=== PATIENT | female | born 1985 | race African-American/Black ===

== ENCOUNTER → 2016-06-26 | Outpatient (CLI) | payer OTHER, SELFPAY ==
--- NOTE | 2016-06-27 19:19 | US ---
EXAM DATE: 06/26/16 PATIENT'S AGE: 30 Patient: MIGUEL PUENTES Facility: [place], [place] Site . Site : 1985 Study: US OB Pelvis [id number] 2:01:23 PM Ordering Physician: Jf Carcamo Final Report: INDICATION: survey. TECHNIQUE: Conventional transabdominal two-dimensional grayscale ultrasound examination. COMPARISON: 04/07/2016. FINDINGS: There is a living fetus with gestational age of 21 weeks by 1st trimester ultrasound dating and 20 weeks 4 days by today`s measurements. EDC based on 1st trimester ultrasound dating is 11/07/2016. BPD: 4.8 cm, 20 weeks 3 days Head circumference: 18.3 cm, 20 weeks 5 days Abdominal circumference: 15.6 cm, 20 weeks 6 days Femur length: 3.3 cm, 20 weeks 2 days The weight is estimated at 359 grams. The heart rate is measured at 156 beats per minute and the rhythm appears regular. The head and spine are grossly intact. No gross facial abnormality is evident. The upper lip is intact. Four cardiac chambers are demonstrated. The heart and stomach appear to be on the same side. The diaphragm is intact. Two kidneys and a bladder are demonstrated. The cord insertion is normal and 3 cord vessels are noted. Four extremities are demonstrated. The amniotic fluid volume is within normal limits with ANTHONY of 17 cm. The placenta is anterior with no evidence of previa. IMPRESSION: 1. Living fetus with gestational age of 21 weeks by 1st trimester ultrasound dating and 20 weeks 4 days by today`s measurements. EDC based on 1st trimester ultrasound dating 11/07/2016. 2. No anomaly evident. Dictated by Andrew Trujillo MD @ Jun 27 2016 4:16PM (Electronic Signature) Report Signed by Proxy and Original Signed Document filed in the Medical Record. VELASQUEZ
== END ==
LOC: MW.US 13:01
PROVIDERS: ATTEND Obstetrics & Gynecology
DX: Z36 Encounter for antenatal screening of mother (principal); Z3A.21 21 weeks gestation of pregnancy
CPT/HCPCS: 76805; 76805-26

== ENCOUNTER → 2016-07-18 | Outpatient (CLI) | payer OTHER, SELFPAY | LOC: MW.CHOBGYN 14:15 | PROVIDERS: ATTEND Obstetrics & Gynecology | DX: Z34.90 Encounter for supervision of normal pregnancy, unspecified, unspecified trimester (principal) | CPT/HCPCS: 81003 ==

== ENCOUNTER → 2016-08-15 | Outpatient (CLI) | payer OTHER, SELFPAY | LOC: MW.CHOBGYN 15:16 | PROVIDERS: ATTEND Obstetrics & Gynecology | DX: Z34.90 Encounter for supervision of normal pregnancy, unspecified, unspecified trimester (principal) | CPT/HCPCS: 36415; 81003; 82950; 85027; 86850; 86900; 86901 ==

== ENCOUNTER 2016-11-16 10:49 | Inpatient (IN) | payer MEDICAID, OTHER ==
[2016-11-16] MEDS ORDERED: Nalbuphine 10 MG/1 ML Vial IVPUSH PRN (11:37)
[2016-11-16] MEDS ORDERED: Methylergonovine 0.2 MG/1 ML Amp IM PRN (11:37)
[2016-11-16] MEDS ORDERED: Sodium Chloride 0.9% 2.5 ML Syringe FLUSH PRN (11:37)
[2016-11-16] MEDS ORDERED: Sodium Chloride 0.9% 10 ML Syringe FLUSH PRN (11:37)
[2016-11-16] MEDS ORDERED: Carboprost Tromethamine 250 MCG/1 ML Amp IM PRN (11:37)
[2016-11-16] MEDS ORDERED: Water For Irrigation,Sterile 1,000 ML Container IRR PRN (11:37)
[2016-11-16] MEDS ORDERED: Misoprostol 200 MCG Tab PO PRN (11:37)
[2016-11-16] MEDS ORDERED: Terbutaline 1 MG/ML SDV SUBCUT PRN (11:37)
[2016-11-16] MEDS ORDERED: Butorphanol 1 MG/ML SDV IVPUSH PRN (11:37)
[2016-11-16] MEDS ORDERED: Lidocaine 1% 50 ML MDV INJECT PRN (11:37)
[2016-11-16] MEDS ORDERED: Misoprostol 25 MCG (1/4 of 100 MCG) Tab PO SCH (11:45)
[2016-11-16] MEDS ORDERED: Oxytocin/Lactated Ringers 30 UNIT/500 ML BAG IV SCH ×2 (11:45)
[2016-11-16] MEDS ORDERED: Misoprostol 25 MCG (1/4 of 100 MCG) Tab VAG SCH (11:45)
[2016-11-16] MEDS ORDERED: Misoprostol 25 MCG (1/4 of 100 MCG) Tab PO ONE (12:16)
--- NOTE | 2016-11-16 14:59 | PCM.LDHP ---
L&D History of Present Illness - General Date of Service: 11/16/16 Admit Problem/Dx: Patient Status Order with Admit Dx/Problem 11/16/16 11:40 Patient Status [ADT] Routine Admission Diagnosis/Problem Admission Diagnosis/Problem 11/16/16 14:56 30 yo EDC 11/07/2016 41 2/7wks gestation, O+, RI, GBS neg. IOL for post dates Source of Information: Patient History Limitations: Reports: No Limitations - History of Present Illness Improves with: Reports: None Worsens with: Reports: None Associated Symptoms: Reports: N - Related Data Allergies/Adverse Reactions: Allergies Allergy/AdvReac Type Severity Reaction Status Date / Time No Known Allergies Allergy Verified 10/26/15 17:21 Home Medications: Home Meds Promethazine [Phenadoz] 12.5 mg RECTAL Q6H PRN 04/18/16 [History] Past Medical History - Past Health History Medical/Surgical History: Denies Medical/Surgical History Gastrointestinal History: Reports: Other (See Below) Other Gastrointestinal History: constipation last 1 month 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: , 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 (See Below) Other OB/BYN History: is 11 weeks Social & Family History - Family History Family Medical History: Noncontributory - Tobacco Use Smoking Status *Q: Never Smoker Second Hand Smoke Exposure: Yes - Caffeine Use Caffeine Use: Reports: None - Recreational Drug Use Recreational Drug Use: No H&P Review of Systems - Review of Systems: Review Of Systems: See Below General: Reports: No Symptoms HEENT: Reports: No Symptoms Pulmonary: Reports: No Symptoms Cardiovascular: Reports: No Symptoms Gastrointestinal: Reports: No Symptoms Genitourinary: Reports: No Symptoms Musculoskeletal: Reports: No Symptoms Skin: Reports: No Symptoms Psychiatric: Reports: No Symptoms Neurological: Reports: No Symptoms Hematologic/Lymphatic: Reports: No Symptoms Immunologic: Reports: No Symptoms L&D Exam - Exam Exam: See Below - Vital Signs Weight: 58.8 kg - Ortega Score Ortega Score Cervix Position: Posterior Ortega Score Consistency: Soft Ortega Score Effacement: 51-70% Ortega Score Dilation: 1-2 cm Ortega Score Infant's Station: -2 Ortega Score Total: 6 - Exam General: Alert, Oriented HEENT: Hearing Intact Lungs: Clear to Auscultation, Normal Respiratory Effort GI/Abdominal Exam: Soft (gravid), Non-Tender Rectal Exam: Deferred Genitourinary: Normal speculum exam, Cervical dilitation Back Exam: Full Range of Motion Extremities: Normal Range of Motion, Non-Tender, No Pedal Edema Skin: Warm, Dry, Intact Neurological: Cranial Nerves Intact Psychiatric: Alert, Normal Affect, Normal Mood - Patient Data Lab Results Last 24 hrs: Laboratory Results - last 24 hr 11/16/16 11/16/16 Range/Units 11:54 11:54 WBC 8.60 (4.0-11.0) K/uL RBC 3.66 L (4.30-5.90) M/uL Hgb 11.5 L (12.0-16.0) g/dL Hct 34.3 L (36.0-46.0) % MCV 93.7 (80.0-98.0) fL MCH 31.4 (27.0-32.0) pg MCHC 33.5 (31.0-37.0) g/dL RDW Std Deviation 43.2 (28.0-62.0) fl RDW Coeff of Christian 13 (11.0-15.0) % Plt Count 202 (150-400) K/uL MPV 10.20 (7.40-12.00) fL Nucleated RBC % 0.0 /100WBC Nucleated RBCs # 0 K/uL Blood Type O POSITIVE Antibody Screen NEGATIVE Result Diagrams: 11/16/16 11:54 - Problem List (1) Supervision of normal IUP (intrauterine ) in primigravida SNOMED Code(s): 10730942, 296466400, 622951616, 173657333 ICD Code: Z34.00 - ENCNTR FOR SUPRVSN OF NORMAL FIRST , UNSP TRIMESTER Status: Acute Priority: High Current Visit: Yes Qualifiers: Trimester: third trimester Qualified Code(s): Z34.03 - Encounter for supervision of normal first , third trimester (2) Post-dates SNOMED Code(s): 33624316 ICD Code: O48.0 - POST-TERM Status: Acute Priority: High Current Visit: Yes Qualifiers: Post-term type: 40-42 weeks gestation Qualified Code(s): O48.0 - Post-term Problem List Initiated/Reviewed/Updated: Yes Orders Last 24hrs: Active Orders 24 hr Category Date Time Status Patient Status [ADT] Routine ADT 11/16/16 11:40 Active Bedrest Bathroom Privileges [RC] ASDIRECTED Care 11/16/16 11:40 Active Communication Order [RC] ASDIRECTED Care 11/16/16 11:40 Active Communication Order [RC] ASDIRECTED Care 11/16/16 11:40 Hold Heart Tones [RC] CONTINUOUS Care 11/16/16 11:40 Hold Non Stress Test [RC] PER UNIT ROUTINE Care 11/16/16 11:40 Hold May Shower [RC] ASDIRECTED Care 11/16/16 11:40 Active Notify Provider [RC] PRN Care 11/16/16 11:40 Hold Notify Provider [RC] PRN Care 11/16/16 11:40 Hold Notify Provider [RC] PRN Care 11/16/16 11:40 Hold Notify Provider [RC] STAT Care 11/16/16 11:40 Active Oxygen Therapy [RC] ASDIRECTED Care 11/16/16 11:40 Active Up ad Agata [RC] ASDIRECTED Care 11/16/16 11:40 Active Vaginal Exam [RC] PRN Care 11/16/16 11:40 Hold Vaginal Exam [RC] PRN Care 11/16/16 11:40 Hold Vital Signs [RC] PER UNIT ROUTINE Care 11/16/16 11:40 Active Vital Signs [RC] PER UNIT ROUTINE Care 11/16/16 11:40 Hold Clear Liquid Diet [DIET] Diet 11/16/16 Dinner Active Butorphanol [Stadol] Med 11/16/16 11:37 Active 1 mg IVPUSH Q1H PRN Carboprost Tromethamine [Hemabate DS] Med 11/16/16 11:37 Active 250 mcg IM ASDIRECTED PRN Lactated Ringers [Ringers, Lactated] 1,000 ml Med 11/16/16 11:45 Active IV ASDIRECTED Lidocaine 1% [Xylocaine 1%] Med 11/16/16 11:37 Active 50 ml INJECT .ONCE PRN Methylergonovine [Methergine] Med 11/16/16 11:37 Active 0.2 mg IM ASDIRECTED PRN Misoprostol [Cytotec] Med 11/16/16 11:37 Active 200 mcg PO .ONCE PRN Misoprostol [Cytotec] Med 11/16/16 11:45 Active 25 mcg VAG .ONCE Misoprostol [Cytotec] Med 11/16/16 11:37 Active 25 mcg VAG Q4H PRN Oxytocin/Lactated Ringers [Pitocin in LR 30 Units/500 Med 11/16/16 11:45 Active ML] 30 unit in 500 ml IV TITRATE Sodium Chloride 0.9% [Saline Flush] Med 11/16/16 11:37 Active 10 ml FLUSH ASDIRECTED PRN Sodium Chloride 0.9% [Saline Flush] Med 11/16/16 11:37 Active 2.5 ml FLUSH ASDIRECTED PRN Terbutaline [Brethine] Med 11/16/16 11:37 Active 0.25 mg SUBCUT ASDIRECTED PRN Water For Irrigation,Sterile [Sterile Water for Med 11/16/16 11:37 Active Irrigation] 1,000 ml IRR ASDIRECTED PRN Scalp Electrode [WOMSER] Per Unit Routine Oth 11/16/16 11:40 Ordered Medication Administration Instruction [OM.PC] Q3H Oth 11/16/16 11:45 Ordered Peripheral IV Insertion Adult [OM.PC] Routine Oth 11/16/16 11:40 Ordered Resuscitation Status Routine Resus Stat 11/16/16 11:37 Ordered Medication Orders Butorphanol Tartrate (Stadol) 1 mg IVPUSH Q1H PRN PRN Reason: Pain Carboprost Tromethamine (Hemabate Ds) 250 mcg IM ASDIRECTED PRN PRN Reason: Post Hemorrhage Lactated Ringer's (Ringers, Lactated) 1,000 mls @ 150 mls/hr IV ASDIRECTED FEMI Oxytocin/Lactated Ringer's (Pitocin In Lr 30 Units/500 Ml) 30 unit in 500 mls @ 2 mls/hr IV TITRATE FEMI; 2 MUNITS/MIN PRN Reason: Protocol Lidocaine HCl (Xylocaine 1%) 50 ml INJECT .ONCE PRN PRN Reason: Laceration repair Methylergonovine Maleate (Methergine) 0.2 mg IM ASDIRECTED PRN PRN Reason: Post Hemorrhage Misoprostol (Cytotec) 200 mcg PO .ONCE PRN PRN Reason: Post Hemorrhage Misoprostol (Cytotec) 25 mcg VAG .ONCE FEMI Last Admin: 11/16/16 12:37 Dose: 25 mcg Misoprostol (Cytotec) 25 mcg VAG Q4H PRN PRN Reason: Cervical Ripening Stop: 11/17/16 15:38 Sodium Chloride (Saline Flush) 10 ml FLUSH ASDIRECTED PRN PRN Reason: Keep Vein Open Sodium Chloride (Saline Flush) 2.5 ml FLUSH ASDIRECTED PRN PRN Reason: Keep Vein Open Sterile Water (Sterile Water For Irrigation) 1,000 ml IRR ASDIRECTED PRN PRN Reason: delivery Terbutaline Sulfate (Brethine) 0.25 mg SUBCUT ASDIRECTED PRN PRN Reason: Tacysystole
[2016-11-16] MEDS: Misoprostol 25 MCG (1/4 of 100 MCG) Tab VAG PRN ×2 (16:47→23:36)
[2016-11-16] MEDS: Misoprostol 25 MCG (1/4 of 100 MCG) Tab PO PRN (23:36)
[2016-11-17] MEDS: Misoprostol 25 MCG (1/4 of 100 MCG) Tab PO PRN ×2 (03:34→07:46)
[2016-11-17] MEDS: Misoprostol 25 MCG (1/4 of 100 MCG) Tab VAG PRN ×2 (03:34→07:46)
[2016-11-17] MEDS: Lactated Ringers 1,000 ML IV SCH ×2 (13:36→13:56)
[2016-11-17] MEDS ORDERED: fentaNYL 100 MCG/2 ML SDV ONE (13:40)
[2016-11-17] MEDS ORDERED: Ropivacaine HCl/PF 100 ML ONE ×2 (13:40→20:42)
--- NOTE | 2016-11-17 14:10 | PCM.PREANE ---
Preanesthetic Assessment - Procedure Proposed Procedure: Labor Epidural - Anesthesia/Transfusion/Family Hx Anesthesia History: No Prior Anesthesia Family History of Anesthesia Reaction: No Transfusion History: No Prior Transfusion(s) Intubation History: Unknown - Review of Systems General: No Symptoms Pulmonary: No Symptoms Cardiovascular: No Symptoms Gastrointestinal: No Symptoms Neurological: No Symptoms Other: Reports: Anxiety - Physical Assessment NPO Status Date: 11/17/16 NPO Status Time: 14:06 (sips/chips) Blood Pressure: 118/70 Height: 5 ft 6 in Weight: 129 lb 10.109 oz ASA Class: 2 Mental Status: Other (Speaks some tristanian and significant other translates for her - not sure if related to stadol or pain, but seems to wait for SO to answer the questions for her) Airway Class: Mallampati = 2 Dentition: Reports: Normal Dentition ROM/Head Extension: Full Lungs: Clear to Auscultation, Normal Respiratory Effort Cardiovascular: Regular Rate, Regular Rhythm - Lab Values: Laboratory Last Values WBC 8.60 K/uL (4.0-11.0) 11/16/16 11:54 RBC 3.66 M/uL (4.30-5.90) L 11/16/16 11:54 Hgb 11.5 g/dL (12.0-16.0) L 11/16/16 11:54 Hct 34.3 % (36.0-46.0) L 11/16/16 11:54 MCV 93.7 fL (80.0-98.0) 11/16/16 11:54 MCH 31.4 pg (27.0-32.0) 11/16/16 11:54 MCHC 33.5 g/dL (31.0-37.0) 11/16/16 11:54 RDW Std Deviation 43.2 fl (28.0-62.0) 11/16/16 11:54 RDW Coeff of Christian 13 % (11.0-15.0) 11/16/16 11:54 Plt Count 202 K/uL (150-400) 11/16/16 11:54 MPV 10.20 fL (7.40-12.00) 11/16/16 11:54 Nucleated RBC % 0.0 /100WBC 11/16/16 11:54 Nucleated RBCs # 0 K/uL 11/16/16 11:54 Blood Type O POSITIVE 11/16/16 11:54 Antibody Screen NEGATIVE 11/16/16 11:54 - Allergies Allergies/Adverse Reactions: Allergies Allergy/AdvReac Type Severity Reaction Status Date / Time No Known Allergies Allergy Verified 10/26/15 17:21 - Blood Blood Available: No Product(s) Available: None - Anesthesia Plan Free Text/Narrative:: Labor Epidural - Acknowledgements Anesthesia Type Planned: Epidural Pt an Appropriate Candidate for the Planned Anesthesia: Yes Alternatives and Risks of Anesthesia Discussed w Pt/Guardian: Yes Pt/Guardian Understands and Agrees with Anesthesia Plan: Yes PreAnesthesia Questionnaire - Past Health History Medical/Surgical History: Denies Medical/Surgical History Gastrointestinal History: Reports: Other (See Below) Other Gastrointestinal History: constipation last 1 month 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 USE Smoking Status *Q: Never Smoker Tobacco Use Within Last Twelve Months: No Second Hand Smoke Exposure: No Recreational Drug Use History: No - HOME MEDS Home Medications: Home Meds Promethazine [Phenadoz] 12.5 mg RECTAL Q6H PRN 04/18/16 [History] - CURRENT (IN HOUSE) MEDS Current Meds: Current Medications Butorphanol Tartrate (Stadol) 1 mg IVPUSH Q1H PRN PRN Reason: Pain Last Admin: 11/17/16 03:34 Dose: 1 mg Carboprost Tromethamine (Hemabate Ds) 250 mcg IM ASDIRECTED PRN PRN Reason: Post Hemorrhage Lactated Ringer's (Ringers, Lactated) 1,000 mls @ 150 mls/hr IV ASDIRECTED FEMI Last Admin: 11/17/16 13:56 Dose: 150 mls/hr Oxytocin/Lactated Ringer's (Pitocin In Lr 30 Units/500 Ml) 30 unit in 500 mls @ 2 mls/hr IV TITRATE FEMI; 2 MUNITS/MIN PRN Reason: Protocol Lidocaine HCl (Xylocaine 1%) 50 ml INJECT .ONCE PRN PRN Reason: Laceration repair Methylergonovine Maleate (Methergine) 0.2 mg IM ASDIRECTED PRN PRN Reason: Post Hemorrhage Misoprostol (Cytotec) 200 mcg PO .ONCE PRN PRN Reason: Post Hemorrhage Misoprostol (Cytotec) 25 mcg VAG .ONCE FEMI Last Admin: 11/16/16 12:37 Dose: 25 mcg Misoprostol (Cytotec) 25 mcg VAG Q4H PRN PRN Reason: Cervical Ripening Stop: 11/17/16 15:38 Last Admin: 11/17/16 07:46 Dose: 25 mcg Misoprostol (Cytotec) 25 mcg PO Q4H PRN PRN Reason: Other Last Admin: 11/17/16 07:46 Dose: 25 mcg Sodium Chloride (Saline Flush) 10 ml FLUSH ASDIRECTED PRN PRN Reason: Keep Vein Open Sodium Chloride (Saline Flush) 2.5 ml FLUSH ASDIRECTED PRN PRN Reason: Keep Vein Open Sterile Water (Sterile Water For Irrigation) 1,000 ml IRR ASDIRECTED PRN PRN Reason: delivery Terbutaline Sulfate (Brethine) 0.25 mg SUBCUT ASDIRECTED PRN PRN Reason: Tacysystole Discontinued Medications Fentanyl (Sublimaze) Confirm Administered Dose 100 mcg .ROUTE .STK-MED ONE Stop: 11/17/16 13:41 Oxytocin/Lactated Ringer's (Pitocin In Lr 30 Units/500 Ml) 30 unit in 500 mls @ 500 mls/hr IV TITRATE FEMI Stop: 11/16/16 12:44 Ropivacaine (Naropin 0.2%) Confirm Administered Dose 100 mls @ as directed .ROUTE .STK-MED ONE Stop: 11/17/16 13:41 Misoprostol (Cytotec) 25 mcg PO Q4H FEMI Misoprostol (Cytotec) 25 mcg PO ONETIME ONE Stop: 11/16/16 12:17 Last Admin: 11/16/16 12:36 Dose: 25 mcg Nalbuphine HCl (Nubain) 10 mg IVPUSH Q1H PRN PRN Reason: Pain (severe 7-10) Stop: 11/16/16 13:38
[2016-11-17] MEDS ORDERED: Acetaminophen 500 MG Tab PO ONE (19:49)
[2016-11-18] MEDS ORDERED: Acetaminophen 500 MG Tab PO PRN ×2 (00:18)
[2016-11-18] MEDS ORDERED: Ibuprofen 400 MG Tab PO PRN (00:18)
[2016-11-18] MEDS ORDERED: Bisacodyl 10 MG Supp RECTAL PRN (00:18)
[2016-11-18] MEDS ORDERED: Lanolin 100% Cream 7 GM Tube TOP PRN (00:18)
[2016-11-18] MEDS ORDERED: oxyCODONE 5 MG Tab PO PRN (00:18)
[2016-11-18] MEDS ORDERED: Docusate Sodium 100 MG Cap PO PRN (00:18)
--- NOTE | 2016-11-18 01:35 | OR ---
SURGEON: Carlos Alberto Rhoades MD DATE OF PROCEDURE: DELIVERY/VACUUM EXTRACTION NOTE: Ms. Payne is 30 primigravida. She is 41+ weeks. She was admitted for elective induction. She was admitted for induction for postdate care. GBS status was negative and followup and workup were essentially normal. She was followed in the clinic primarily by me. She was induced with Cytotec and Pitocin. She responded to that very well, and she was to have an artificial rupture of the membrane at 3 cm by me around 10 a.m. on the day of her admission, she continued to progress. The patient became complete, complete around 8 o'clock and when she felt urge to push, she started pushing; however, the patient was epiduralised, and she had not put adequate pressures, so after pushing for 2-1/2 hours, I came to evaluate the patient for possible vacuum extraction. The fetus was in occiput anterior. She was complete, complete. She had vertex. She was +2 station. Her contraction was rather weak, and the patient was not a good pusher; however, her Kiwi vacuum was applied and we asked the patient to push. With aid of the vacuum, the head was guided out and it was and almost out when the vacuum was popped off, so with the aid of midline episiotomy, the patient was able to come to complete the delivery on her own spontaneously of female fetus. She cried immediately. Dr. Burger is the suction roller, who had attended the delivery. The placenta delivered spontaneous, complete, and intact without any problem. Episiotomy was repaired with 3-0 Vicryl continuous in layer. heart rate was category I through the entire process of labor. There was terminal meconium that was noted after the delivery. Estimated blood loss was 250 to 300 mL. There was no complication in this process of labor and delivery. HERMILA / FIDEL /[id number]
[2016-11-18] MEDS: Ibuprofen 800 MG Tab PO PRN ×2 (03:45→16:48)
[2016-11-18] MEDS: Witch Hazel Medicated Pads 40/Jar TOP PRN (03:46)
[2016-11-18] MEDS: Benzocaine/Menthol 20%-0.5% Spray 78 GM Cannister TOP PRN (03:47)
--- NOTE | 2016-11-18 10:42 | PCM48HPAN ---
Post Anesthesia Note - EVALUATION WITHIN 48HRS OF ANESTHETIC Vital Signs in Normal Range: Yes Patient Participated in Evaluation: Yes Respiratory Function Stable: Yes Airway Patent: Yes Cardiovascular Function Stable: Yes Hydration Status Stable: Yes Pain Control Satisfactory: Yes Nausea and Vomiting Control Satisfactory: Yes Mental Status Recovered: Yes
[2016-11-19] MEDS: Ibuprofen 800 MG Tab PO PRN (08:00)
[2016-11-19 08:26] VITALS: BP 124/80
--- NOTE | 2016-11-19 08:59 | PCM.DCSUM1 ---
Discharge Summary - Discharge Data Discharge Date: 11/19/16 Discharge Disposition: Home, Self-Care 01 Condition: Good - Patient Instructions Diet: Usual Diet as Tolerated Activity: As Tolerated Driving: Do Not Drive Showering/Bathing: May Shower - Discharge Plan Home Medications: Home Meds Promethazine [Phenadoz] 12.5 mg RECTAL Q6H PRN 04/18/16 [History] Patient Handouts: Home Care Instructions for Mom, Care After Vaginal Delivery Referrals: [facility] [Outside] Carlos Alberto Rhoades MD [Family Provider] - 12/30/16 3:00 pm - General Info Date of Service: 11/19/16 Functional Status: Reports: Pain Controlled - Review of Systems General: Reports: No Symptoms HEENT: Reports: No Symptoms Pulmonary: Reports: No Symptoms Cardiovascular: Reports: No Symptoms Gastrointestinal: Reports: No Symptoms Genitourinary: Reports: No Symptoms Musculoskeletal: Reports: No Symptoms Skin: Reports: No Symptoms Neurological: Reports: No Symptoms Psychiatric: Reports: No Symptoms - Patient Data Vitals - Most Recent: Last Vital Signs Temp 36.8 C 11/19/16 08:00 Pulse 78 11/19/16 08:00 Resp 16 11/19/16 08:00 BP 124/80 11/19/16 08:00 Pulse Ox 99 11/19/16 08:00 Weight - Most Recent: 58.8 kg Lab Results - Last 24 hrs: Laboratory Results - last 24 hr 11/19/16 Range/Units 04:50 Hgb 9.9 L (12.0-16.0) g/dL Hct 29.9 L (36.0-46.0) % Med Orders - Current: Current Medications Acetaminophen (Tylenol Extra Strength) 500 mg PO Q4H PRN PRN Reason: Pain Acetaminophen (Tylenol Extra Strength) 1,000 mg PO Q4H PRN PRN Reason: Pain Benzocaine/Menthol (Dermoplast Pain Relief 20%-0.5% Makanda) 78 gm TOP ASDIRECTED PRN PRN Reason: Perineal Comfort Measure Last Admin: 11/18/16 03:47 Dose: 1 canister Bisacodyl (Dulcolax) 10 mg RECTAL .ONCE PRN PRN Reason: Constipation Butorphanol Tartrate (Stadol) 1 mg IVPUSH Q1H PRN PRN Reason: Pain Last Admin: 11/17/16 03:34 Dose: 1 mg Carboprost Tromethamine (Hemabate Ds) 250 mcg IM ASDIRECTED PRN PRN Reason: Post Hemorrhage Docusate Sodium (Colace) 100 mg PO BID PRN PRN Reason: Constipation Last Admin: 11/18/16 03:45 Dose: 100 mg Emollient Ointment (Lansinoh Hpa) 0 gm TOP ASDIRECTED PRN PRN Reason: Sore Nipples Last Admin: 11/18/16 03:46 Dose: 1 tube Lactated Ringer's (Ringers, Lactated) 1,000 mls @ 150 mls/hr IV ASDIRECTED FEMI Last Admin: 11/17/16 13:56 Dose: 150 mls/hr Oxytocin/Lactated Ringer's (Pitocin In Lr 30 Units/500 Ml) 30 unit in 500 mls @ 2 mls/hr IV TITRATE FEMI; 2 MUNITS/MIN PRN Reason: Protocol Last Titration: 11/18/16 00:36 Dose: Infused Ibuprofen (Motrin) 400 mg PO Q4H PRN PRN Reason: Pain Ibuprofen (Motrin) 800 mg PO Q6H PRN PRN Reason: Pain Last Admin: 11/19/16 08:00 Dose: 800 mg Lidocaine HCl (Xylocaine 1%) 50 ml INJECT .ONCE PRN PRN Reason: Laceration repair Methylergonovine Maleate (Methergine) 0.2 mg IM ASDIRECTED PRN PRN Reason: Post Hemorrhage Misoprostol (Cytotec) 200 mcg PO .ONCE PRN PRN Reason: Post Hemorrhage Misoprostol (Cytotec) 25 mcg VAG .ONCE FEMI Last Admin: 11/16/16 12:37 Dose: 25 mcg Misoprostol (Cytotec) 25 mcg PO Q4H PRN PRN Reason: Other Last Admin: 11/17/16 07:46 Dose: 25 mcg Oxycodone HCl (Oxycodone) 5 mg PO Q2H PRN PRN Reason: Pain Sodium Chloride (Saline Flush) 10 ml FLUSH ASDIRECTED PRN PRN Reason: Keep Vein Open Sodium Chloride (Saline Flush) 2.5 ml FLUSH ASDIRECTED PRN PRN Reason: Keep Vein Open Sterile Water (Sterile Water For Irrigation) 1,000 ml IRR ASDIRECTED PRN PRN Reason: delivery Terbutaline Sulfate (Brethine) 0.25 mg SUBCUT ASDIRECTED PRN PRN Reason: Tacysystole Witch Cathie (Tucks) 1 pad TOP ASDIRECTED PRN PRN Reason: comfort care Last Admin: 11/18/16 03:46 Dose: 1 tub Discontinued Medications Acetaminophen (Tylenol Extra Strength) 1,000 mg PO ONETIME ONE Stop: 11/17/16 19:50 Last Admin: 11/17/16 19:54 Dose: 1,000 mg Fentanyl (Sublimaze) Confirm Administered Dose 100 mcg .ROUTE .STK-MED ONE Stop: 11/17/16 13:41 Last Admin: 11/18/16 17:53 Dose: Not Given Oxytocin/Lactated Ringer's (Pitocin In Lr 30 Units/500 Ml) 30 unit in 500 mls @ 500 mls/hr IV TITRATE FEMI Stop: 11/16/16 12:44 Ropivacaine (Naropin 0.2%) Confirm Administered Dose 100 mls @ as directed .ROUTE .STK-MED ONE Stop: 11/17/16 13:41 Last Admin: 11/18/16 17:53 Dose: Not Given Ropivacaine (Naropin 0.2%) Confirm Administered Dose 100 mls @ as directed .ROUTE .STK-MED ONE Stop: 11/17/16 20:43 Last Admin: 11/18/16 17:54 Dose: Not Given Misoprostol (Cytotec) 25 mcg VAG Q4H PRN PRN Reason: Cervical Ripening Stop: 11/17/16 15:38 Last Admin: 11/17/16 07:46 Dose: 25 mcg Misoprostol (Cytotec) 25 mcg PO Q4H FEMI Misoprostol (Cytotec) 25 mcg PO ONETIME ONE Stop: 11/16/16 12:17 Last Admin: 11/16/16 12:36 Dose: 25 mcg Nalbuphine HCl (Nubain) 10 mg IVPUSH Q1H PRN PRN Reason: Pain (severe 7-10) Stop: 11/16/16 13:38 - Exam General: Reports: Alert, Oriented HEENT: Reports: Pupils Equal, Pupils Reactive, EOMI, Mucous Membr. Moist/[place] Neck: Reports: Supple Lungs: Reports: Clear to Auscultation, Normal Respiratory Effort Cardiovascular: Reports: Regular Rate, Regular Rhythm GI/Abdominal Exam: Normal Bowel Sounds, Soft, Non-Tender, No Organomegaly, No Distention, No Abnormal Bruit, No Mass, Pelvis Stable (Female) Exam: Normal External Exam, Normal Speculum Exam, Normal Bimanual Exam Rectal (Female) Exam: Normal Exam, Normal Rectal Tone Back Exam: Reports: Normal Inspection, Full Range of Motion Extremities: Normal Inspection, Normal Range of Motion, Non-Tender, No Pedal Edema, Normal Capillary Refill Skin: Reports: Warm, Dry, Intact Wound/Incisions: Reports: Healing Well Neurological: Reports: No New Focal Deficit Psy/Mental Status: Reports: Alert, Normal Affect, Normal Mood *Q Meaningful Use (DIS) - VTE *Q VTE Criteria *Q: - Stroke *Q Stroke Criteria *Q: - AMI *Q AMI Criteria *Q:
[2016-11-19] MEDS: Witch Hazel Medicated Pads 40/Jar TOP PRN (13:47)
[2016-11-19] MEDS: Benzocaine/Menthol 20%-0.5% Spray 78 GM Cannister TOP PRN (13:47)
== END 2016-11-19 14:55 | disposition home or self-care (01) | DRG 775 ==
LOC: MW.OBCHECK 10:49 → MW.OB 10:51 → MW.OBCHECK 12:09 → OBSVTOIN 11-18 00:05 → MW.OB 11-18 03:53
PROVIDERS: ADMIT Obstetrics & Gynecology; ATTEND Obstetrics & Gynecology
PROC: 10D07Z6 Extraction of Products of Conception, Vacuum, Via Natural or Artificial Opening (ICD-10-PCS; principal; 2016-11-18)
PROC: 0W8NXZZ Division of Female Perineum, External Approach (ICD-10-PCS; 2016-11-18)
PROC: 3E0P7GC Introduction of Other Therapeutic Substance into Female Reproductive, Via Natural or Artificial Opening (ICD-10-PCS; 2016-11-18)
PROC: 3E033VJ Introduction of Other Hormone into Peripheral Vein, Percutaneous Approach (ICD-10-PCS; 2016-11-18)
PROC: 0HQ9XZZ Repair Perineum Skin, External Approach (ICD-10-PCS; 2016-11-18)
DX: O48.0 Post-term pregnancy (principal); O70.0 First degree perineal laceration during delivery; Z3A.41 41 weeks gestation of pregnancy; Z37.0 Single live birth
CPT/HCPCS: 36415; 59025; 85014; 85018; 85027; 86850; 86900; 86901; A9270-GY; J0595; J2795; J7120

== ENCOUNTER 2019-04-22 14:24 | Emergency (ER) | payer SELFPAY ==
--- NOTE | 2019-04-22 15:21 | EDM.PDOC ---
ED HPI GENERAL MEDICAL PROBLEM - General Chief Complaint: Abdominal Pain Stated Complaint: SICK Time Seen by Provider: 04/22/19 15:20 Source of Information: Reports: Patient History Limitations: Reports: No Limitations - History of Present Illness INITIAL COMMENTS - FREE TEXT/NARRATIVE: Patient is a 33-year-old female who is complaining having diffuse abdominal pain worse on the left lower for the past several days and much worse today. Patient states pain is worse with movement she denies any fever or chills. Denies any dysuria or hematuria has had no nausea vomiting or diarrhea. She denies any vaginal discharge or bleeding. Patient states she has had a hysterectomy. Patient is taken nothing for her current symptoms. She has never had similar symptoms in the past. Duration: Day(s): (4) Location: Reports: Abdomen Quality: Reports: Ache, Dull Severity: Moderate Improves with: Reports: None Worsens with: Reports: Movement Associated Symptoms: Reports: No Other Symptoms abd and back Pain Score (Numeric/FACES): 9 - Related Data Allergies Allergy/AdvReac Type Severity Reaction Status Date / Time No Known Allergies Allergy Verified 04/22/19 14:55 Home Meds: Home Meds Dicyclomine [Bentyl] 20 mg PO TID PRN #14 tab 04/22/19 [Rx] Past Medical History - Past Health History Medical/Surgical History: Denies Medical/Surgical History Gastrointestinal History: Reports: Other (See Below) Other Gastrointestinal History: constipation last 1 month CORRESPONDENCE SPECIALIST History: Reports: Other CORRESPONDENCE SPECIALIST History: is 11 weeks - Infectious Disease History Infectious Disease History: Reports: None - Past Surgical History Female Surgical History: Reports: Section Social & Family History - Family History Family Medical History: Noncontributory - Tobacco Use Smoking Status *Q: Never Smoker - Caffeine Use Caffeine Use: Reports: None - Recreational Drug Use Recreational Drug Use: No ED ROS GENERAL - Review of Systems Review Of Systems: Comprehensive ROS is negative, except as noted in HPI. ED EXAM, GI/ABD - Physical Exam Exam: See Below Text/Narrative:: Exam: See Below Exam Limited By: No Limitations Head: Atraumatic Neck: Normal Inspection. No: Carotid Bruit, Lymphadenopathy (R) Respiratory/Chest: No Respiratory Distress, Lungs Clear, Normal Breath Sounds, No Accessory Muscle Use. No: Chest Non-Tender Cardiovascular: Normal Peripheral Pulses, Regular Rate, Rhythm, No Edema, No JVD GI/Abdominal: Normal Bowel Sounds, Tender left lower quadrant greater than right lower quadrant. Patient has mild rebound without guarding. There is no mass appreciated.. No: Non-Tender, no splenomegaly Back Exam: Normal Inspection. No: CVA Tenderness (R) Extremities: Normal Inspection. No: No Pedal Edema Neurological: Alert, Oriented, Normal Cognition Psychiatric: Normal Affect Skin Exam: Warm Lymphatic: No Adenopathy Course - Vital Signs Last Recorded V/S: Last Vital Signs Temp 35.6 C 04/22/19 14:53 Pulse 112 H 04/22/19 14:53 Resp 18 04/22/19 14:53 BP 107/71 04/22/19 14:53 Pulse Ox 98 04/22/19 14:53 - Orders/Labs/Meds Labs: Laboratory Tests 04/22/19 04/22/19 04/22/19 Range/Units 15:36 15:59 15:59 WBC 12.49 H (4.0-11.0) K/uL RBC 5.06 (4.30-5.90) M/uL Hgb 14.6 (12.0-16.0) g/dL Hct 44.7 (36.0-46.0) % MCV 88.3 (80.0-98.0) fL MCH 28.9 (27.0-32.0) pg MCHC 32.7 (31.0-37.0) g/dL RDW Std Deviation 40.0 (28.0-62.0) fl RDW Coeff of Christian 13 (11.0-15.0) % Plt Count 273 (150-400) K/uL MPV 10.10 (7.40-12.00) fL Neut % (Auto) 83.0 H (48.0-80.0) % Lymph % (Auto) 10.6 L (16.0-40.0) % [place] % (Auto) 4.3 (0.0-15.0) % Eos % (Auto) 2.0 (0.0-7.0) % Baso % (Auto) 0.1 (0.0-1.5) % Neut # (Auto) 10.4 H (1.4-5.7) K/uL Lymph # (Auto) 1.3 (0.6-2.4) K/uL [place] # (Auto) 0.5 (0.0-0.8) K/uL Eos # (Auto) 0.3 (0.0-0.7) K/uL Baso # (Auto) 0.0 (0.0-0.1) K/uL Nucleated RBC % 0.0 /100WBC Nucleated RBCs # 0 K/uL Lactate 1.2 (0.20-2.00) mmol/L Sodium (136-145) mmol/L Potassium (3.5-5.1) mmol/L Chloride (98-107) mmol/L Carbon Dioxide (21.0-32.0) mmol/L BUN (7.0-18.0) mg/dL Creatinine (0.6-1.0) mg/dL Est Cr Clr Drug Dosing mL/min Estimated GFR (MDRD) ml/min Glucose (74-106) mg/dL Calcium (8.5-10.1) mg/dL Total Bilirubin (0.2-1.0) mg/dL AST (15-37) IU/L ALT (14-63) IU/L Alkaline Phosphatase (46-116) U/L Total Protein (6.4-8.2) g/dL Albumin (3.4-5.0) g/dL Globulin (2.6-4.0) g/dL Albumin/Globulin Ratio (0.9-1.6) Urine Color YELLOW Urine Appearance CLEAR Urine pH 6.0 (5.0-8.0) Ur Specific [place] <= 1.005 (1.001-1.035) Urine Protein NEGATIVE (NEGATIVE) mg/dL Urine Glucose (UA) NEGATIVE (NEGATIVE) mg/dL Urine Ketones NEGATIVE (NEGATIVE) mg/dL Urine Occult Blood NEGATIVE (NEGATIVE) Urine Nitrite NEGATIVE (NEGATIVE) Urine Bilirubin NEGATIVE (NEGATIVE) Urine Urobilinogen 0.2 (<2.0) EU/dL Ur Leukocyte Esterase NEGATIVE (NEGATIVE) 04/22/19 Range/Units 15:59 WBC (4.0-11.0) K/uL RBC (4.30-5.90) M/uL Hgb (12.0-16.0) g/dL Hct (36.0-46.0) % MCV (80.0-98.0) fL MCH (27.0-32.0) pg MCHC (31.0-37.0) g/dL RDW Std Deviation (28.0-62.0) fl RDW Coeff of Christian (11.0-15.0) % Plt Count (150-400) K/uL MPV (7.40-12.00) fL Neut % (Auto) (48.0-80.0) % Lymph % (Auto) (16.0-40.0) % [place] % (Auto) (0.0-15.0) % Eos % (Auto) (0.0-7.0) % Baso % (Auto) (0.0-1.5) % Neut # (Auto) (1.4-5.7) K/uL Lymph # (Auto) (0.6-2.4) K/uL [place] # (Auto) (0.0-0.8) K/uL Eos # (Auto) (0.0-0.7) K/uL Baso # (Auto) (0.0-0.1) K/uL Nucleated RBC % /100WBC Nucleated RBCs # K/uL Lactate (0.20-2.00) mmol/L Sodium 138 (136-145) mmol/L Potassium 3.7 (3.5-5.1) mmol/L Chloride 102 (98-107) mmol/L Carbon Dioxide 28.0 (21.0-32.0) mmol/L BUN 8 (7.0-18.0) mg/dL Creatinine 0.7 (0.6-1.0) mg/dL Est Cr Clr Drug Dosing 113.24 mL/min Estimated GFR (MDRD) > 60.0 ml/min Glucose 79 (74-106) mg/dL Calcium 9.3 (8.5-10.1) mg/dL Total Bilirubin 0.9 (0.2-1.0) mg/dL AST 24 (15-37) IU/L ALT 30 (14-63) IU/L Alkaline Phosphatase 124 H (46-116) U/L Total Protein 8.3 H (6.4-8.2) g/dL Albumin 3.5 (3.4-5.0) g/dL Globulin 4.8 H (2.6-4.0) g/dL Albumin/Globulin Ratio 0.7 L (0.9-1.6) Urine Color Urine Appearance Urine pH (5.0-8.0) Ur Specific [place] (1.001-1.035) Urine Protein (NEGATIVE) mg/dL Urine Glucose (UA) (NEGATIVE) mg/dL Urine Ketones (NEGATIVE) mg/dL Urine Occult Blood (NEGATIVE) Urine Nitrite (NEGATIVE) Urine Bilirubin (NEGATIVE) Urine Urobilinogen (<2.0) EU/dL Ur Leukocyte Esterase (NEGATIVE) Meds: Medications Discontinued Medications Generic Name Dose Route Start Last Admin Trade Name David PRN Reason Stop Dose Admin Sodium Chloride 1,000 mls @ 999 mls/hr 04/22/19 15:32 04/22/19 16:09 Normal Saline IV 04/22/19 16:32 999 mls/hr .BOLUS ONE Administration Ketorolac Tromethamine 30 mg 04/22/19 15:32 04/22/19 16:09 Toradol IVPUSH 04/22/19 15:33 30 mg ONETIME ONE Administration Ondansetron HCl 4 mg 04/22/19 15:32 04/22/19 16:09 Zofran Odt PO 04/22/19 15:33 4 mg ONETIME ONE Administration - Re-Assessments/Exams Free Text/Narrative Re-Assessment/Exam: 04/22/19 17:57 Patient's lab work is unremarkable. CT scan shows that she is constipated. She has a normal appendix and no sign of any infection on CT. Patient is feeling better at this point. I will give her a prescription for Bentyl and recommend she try some magnesium citrate and possibly a fleets enema if needed. She can return to emergency department if worse. Is advised to increase fiber in diet and fluid with meals. Departure - Departure Time of Disposition: 17:59 Disposition: Home, Self-Care 01 Condition: Good Clinical Impression: Constipation Qualifiers: Constipation type: unspecified constipation type Qualified Code(s): K59.00 - Constipation, unspecified - Discharge Information Instructions: Constipation, Adult Referrals: Aniya Ignacio LINEN CLERK [Primary Care Provider] - Forms: ED Department Discharge Additional Instructions: [id number] magnesium citrate as directed. Use fluid with meals and fiber in diet. Follow-up with solid fiber paster operator if not improving. Return to emergency department if worse. Bentyl as directed and as needed. Sepsis Event Note - Evaluation Sepsis Screening Result: No Definite Risk - Focused Exam Vital Signs: Vital Signs Temp Pulse Resp BP Pulse Ox 04/22/19 14:53 35.6 C 112 H 18 107/71 98 Date Exam was Performed: 04/22/19 Time Exam was Performed: 17:53
[2019-04-22] MEDS ORDERED: Ondansetron 4 MG Tab.DIS PO ONE (15:32)
[2019-04-22] MEDS ORDERED: Sodium Chloride 0.9% 1,000 ML IV ONE (15:32)
[2019-04-22] MEDS ORDERED: Ketorolac 30 MG/ML SDV IVPUSH ONE (15:32)
[2019-04-22 16:34] LABS: BLOOD UREA NITROGEN,BUN 8 mg/dL (7.0-18.0); CHLORIDE,CL 102 mmol/L (98-107); GLUCOSE RANDOM 79 mg/dL (74-106); POTASSIUM,K 3.7 mmol/L (3.5-5.1); SODIUM,NA 138 mmol/L (136-145)
--- NOTE | 2019-04-22 17:22 | CT ---
INDICATION: Abdominal pain, evaluate for appendicitis TECHNIQUE: CT abdomen and pelvis without contrast. COMPARISON: None FINDINGS: Lower chest: Unremarkable. Liver: Unremarkable. Spleen: Unremarkable. Pancreas: Unremarkable. Gallbladder and bile ducts: Unremarkable. Kidneys: Unremarkable. No kidney or ureteral stones and no hydronephrosis. Adrenal glands: Unremarkable. GI tract: Diffuse colonic fecal retention. Appendix is normal. Vascular structures: Unremarkable. Lymph nodes: Unremarkable. Miscellaneous: Unremarkable. No free air or significant free fluid. Pelvic Organs: Unremarkable. Bones: Unremarkable for age. IMPRESSION: Normal appearing appendix. No definitive findings to explain the patient`s foot pain. Diffuse colonic fecal retention Dictated by Thor Rockwell MD @ 04/22/2019 5:20:19 PM Please note that all CT scans at this facility use dose modulation, iterative reconstruction, and/or weight-based dosing when appropriate to reduce radiation dose to as low as reasonably achievable. Dictated by: Thor Rockwell MD @ 04/22/2019 17:20:24 (Electronically Signed)
[2019-04-22 18:17] VITALS: BP 106/69
[2019-04-22 18:18] VITALS: PULSE 70
== END 2019-04-22 18:13 | disposition home or self-care (01) ==
LOC: MW.ED 14:24
DX: K59.00 Constipation, unspecified (principal); Z90.710 Acquired absence of both cervix and uterus
CPT/HCPCS: 36415; 74176; 80053; 81003; 83605; 85025; 96361; 96374; 99284; A9270; J1885; J7030; 99283